=== PATIENT | male | born 1975 | race Caucasian/White ===

== ENCOUNTER 2019-11-21 12:48 | Day surgery (SDC) | payer MEDICARE ==
[2019-11-21] MEDS ORDERED: Depo-Medrol 40 MG/ML IM ONE (12:49)
[2019-11-21] MEDS ORDERED: Sodium Chloride 0.9(Preservative Free) 10 ML IJ ONE (12:49)
[2019-11-21] MEDS ORDERED: Xylocaine 1% Vial 30 ML PF IJ ONE (12:49)
--- NOTE | 2019-11-21 14:48 | XRAY ---
Indication: Lumbar BRIE. Intraoperative fluoroscopy was provided for 23 seconds. 2 digital spot images submitted for interpretation demonstrates midline posterior needle tip projecting just posterior to the L2-L3 interspace. Small amount of contrast injected for needle tip placement. Correlate with intraoperative findings/report. Incidental incompletely visualized bilateral posterior L3-L5 pedicle screws.
--- NOTE | 2019-11-21 15:06 | XRAY ---
23 seconds fluoroscopy time in surgery for lumbar BRIE.
== END 2019-11-21 14:47 | disposition home or self-care (01) ==
LOC: SDC-PAIN 12:48
PROVIDERS: ATTEND Psychiatry & Neurology Pain Medicine
DX: M54.16 Radiculopathy, lumbar region (principal); Z79.899 Other long term (current) drug therapy
CPT/HCPCS: 62323; 72100; 77003; J1030; J2001; Q9966

== ENCOUNTER 2020-12-31 15:50 | Day surgery (SDC) | payer MEDICARE ==
[2020-12-31] MEDS ORDERED: Xylocaine 1% Vial 30 ML PF IJ ONE (15:51)
[2020-12-31] MEDS ORDERED: Sodium Chloride 0.9(Preservative Free) 10 ML IJ ONE (15:51)
[2020-12-31] MEDS ORDERED: Depo-Medrol 40 MG/ML IM ONE (15:51)
--- NOTE | 2020-12-31 18:54 | XRAY ---
Indication: Lumbar BRIE. Intraoperative fluoroscopy provided for 26 seconds. 2 digital spot image submitted for interpretation demonstrates midline posterior needle tip projecting posterior to L2. Small amount of contrast injected for needle tip placement. Correlate with intraoperative findings/report.
--- NOTE | 2021-01-01 10:03 | XRAY ---
26 seconds of fluoroscopy was used in surgery for a lumbar BRIE.
== END 2020-12-31 18:26 | disposition home or self-care (01) ==
LOC: SDC-PAIN 15:50
PROVIDERS: ATTEND Psychiatry & Neurology Pain Medicine
DX: M54.16 Radiculopathy, lumbar region (principal); M19.90 Unspecified osteoarthritis, unspecified site
CPT/HCPCS: 62323; 72100; 77003; J1030; J2001; Q9966

== ENCOUNTER 2021-05-18 08:12 | Day surgery (SDC) | payer MEDICARE ==
--- NOTE | 2021-05-18 08:10 | HP ---
DATE OF SURGERY: 05/18/2021 HISTORY OF PRESENT ILLNESS: The patient is a 46-year-old with history of upper endoscopy in the past. Vocal cord polyp in the past. He denies any prior colonoscopy. He feels that he is choking upper esophagus at this point, some reflux. He had some blood in the stool in the past but not recently. No current rectal bleeding. He has some constipation at times. He had been followed by Dr. Hills in the past. He denied any polyp in the past. PAST MEDICAL HISTORY: He has some anxiety, some aches, pains and sleep apnea. PAST SURGICAL HISTORY: Tonsillectomy. Lumbar discectomy. Anterior lumbar fusion. MEDICATIONS: Hydrocodone, Lexapro, trazodone. ALLERGIES: NKDA. FAMILY HISTORY: Mother with some sort of abdominal cancer and lymphoma. Father had lung cancer. Stroke and hypertension. SOCIAL HISTORY: No smoking or alcohol use. REVIEW OF SYSTEMS: Fourteen systems reviewed. No chest pain or palpitations. Other systems negative or noncontributory as above and per preadmission questionnaire. PHYSICAL EXAMINATION: GENERAL: No acute distress. HEENT: Sclerae nonicteric. NECK: No JVD. CHEST: Equal excursion, nonlabored breathing. CVS: Regular rate and rhythm. ABDOMEN: Soft. No peritoneal signs. EXTREMITIES: No significant edema. NEURO: Alert, oriented, moving extremities symmetrically. RECTAL: Deferred timed to endoscopy exam. PSYCH: Appropriate mood and affect. IMPRESSION: 1) Need for screening colonoscopy. 2) Increased reflux and dysphagia. PLAN: He is in need of upper endoscopy possibly biopsy, possible dilatation as well as screening colonoscopy. Risks and benefits explained in detail including but not limited to bleeding or infection, risk of bowel injury or perforation possibly requiring open procedure, risk of missed or nondiagnosis or incomplete exam possibly requiring barium enema, barium swallow, other studies or procedures. General risk of anesthesia or sedation, risk of bowel prep but not limited to, consent obtained. Will proceed with outpatient EGD possible biopsy, possible dilatation as well as follow up screening colonoscopy.
[~2021-05-18 08:12] MED LIST: Lactated Ringers 1,000 ML IV SCH
[2021-05-18] MEDS ORDERED: Versed 2 MG/2 ML Injection ONE (10:22)
[2021-05-18] MEDS ORDERED: DIPRIVAN 200 MG/20 ML IV ONE ×3 (10:22→10:54)
[2021-05-18 11:32] VITALS: O2SAT 97
[2021-05-18 11:50] VITALS: BP 150/87; PULSE 60
--- NOTE | 2021-05-18 13:48 | OP ---
SURGERY DATE/TIME: 05/18/2021 1038 PREOPERATIVE DIAGNOSIS: Recent dysphagia. POSTOPERATIVE DIAGNOSES: 1) Minimal to mild gastritis. 2) No visible narrowed area enough to warrant need for dilatation on this exam. 3) Small polyps rectum x2. 4) Fair bowel prep. 5) A few tiny diverticula. 6) ASA Class II. 7) Withdrawal time was approximately 9 minutes. PROCEDURES: 1) EGD with cold biopsy of antrum to evaluate for Helicobacter pylori. 2) Random cold biopsies mid esophagus to evaluate eosinophilic esophagitis. 3) Colonoscopy to cecum. 4) Hot biopsy polypectomy of mid rectal polyp. 5) Hot biopsy polypectomy of distal rectal polyp. SURGEON: Dr. Roberth Bennett. ANESTHESIA: MAC. ESTIMATED BLOOD LOSS: Minimal. INDICATIONS: As noted above. Risks and benefits explained in detail and not limited to and consent obtained. DESCRIPTION OF PROCEDURE AND FINDINGS: The patient is taken to the endoscopy room. MAC anesthesia introduced. After official time out and no disagreement with planned procedure, bite block positioned. Video gastroscope easily passed down the esophagus. There was no obvious evidence of any mass lesion to biopsy. There did not appear to be any significantly narrowed area that warranted any dilatation in the upper esophagus. Scope passed to the gastroesophageal junction about 42 cm to the patent pylorus to the third portion of duodenum. The third, second and first portions of the duodenum grossly unremarkable. Back in the stomach had some mild gastric erythema or gastropathy. Cold biopsy taken to evaluate for Helicobacter pylori. Good hemostasis noted. On retroflex the gastroesophageal junction snug against the scope. No signs of any hiatal hernia. No signs of any ulcers or other mucosal lesions. Scope pulled back to gastroesophageal junction 42 cm. Z-line was crisp. No signs of any erosion. No signs of any Escamilla's. The scope is pulled back up to mid esophagus and some random cold biopsies taken to evaluate eosinophilic esophagitis. Good hemostasis noted. Otherwise the remainder of the exam was grossly unremarkable. There were no signs of any significantly narrowed areas on this exam to warrant any dilatation. The scope is withdrawn. Digital rectal exam did not reveal any rectal masses. Video colonoscope inserted and passed up through the slightly tortuous sigmoid, descending, transverse, ascending colon around to cecum. Appendiceal orifice and valve well visualized and photo documented. The scope is carefully withdrawn over the next nine minutes. Prep overall was fair, liquidy stool suctioned irrigated as clear as possible. The scope is slowly and carefully withdrawn. No signs of any large polyps, masses or obstructing lesions. He had a few tiny diverticula in the left colon. No signs of any large polyps, masses or obstructing lesions. Two small polyps in the rectum, one in the mid rectum and one in the distal rectum 2 mm in size removed with hot biopsy forceps with brief burst of cautery. Good hemostasis noted. Scope is withdrawn. Findings discussed with the family out in the waiting area. I will see him back in the office in the next week or two. If he keeps having problems may need to do an esophagogram to evaluate further causes. Otherwise he will chew his food up and take small bites.
== END 2021-05-18 11:51 | disposition home or self-care (01) ==
LOC: SDC 08:12
PROVIDERS: ATTEND Surgery
DX: Z12.11 Encounter for screening for malignant neoplasm of colon (principal); K29.70 Gastritis, unspecified, without bleeding; K57.30 Diverticulosis of large intestine without perforation or abscess without bleeding; K62.1 Rectal polyp
CPT/HCPCS: 88305; J2250; J2704